=== PATIENT | male | born 1940 | race Hispanic/Latino ===

== ENCOUNTER 2021-12-05 21:04 | Inpatient (IN) | payer MEDICARE ==
[~2021-12-05] VITALS: Ht 162.6 cm; Wt 68.7 kg
[2021-12-05 21:27] LABS: HEMATOCRIT 23.4 % (38.2-49.6); HEMOGLOBIN 7.3 g/dL (14.0-18.0); LYMPHOCYTES # (AUTO) 0.8 (1.0-3.2); MEAN CORPUSCULAR HEMOGLOBIN 40.1 pg (28-32); MEAN CORPUSCULAR HGB CONC 31.2 g/dL (31-35); MEAN CORPUSCULAR VOLUME 128.6 fL (81-99); MONOCYTES # (AUTO) 0.2 (0.2-0.8); MONOCYTES % 7.4 % (4.4-11.3); NEUTROPHILS # (AUTO) 2.3 (2.1-6.9); PLATELET COUNT 51 x10e3/uL (140-360); RED BLOOD COUNT 1.82 x10e6/uL (4.3-5.7); RED CELL DISTRIBUTION WIDTH 14.6 % (11.7-14.4)
[2021-12-05] MEDS ORDERED: AMIODARONE HCL 150 MG/100 ML BAG IV ONE (21:30)
[2021-12-05] MEDS ORDERED: AMIODARONE 900MG 500 ML IV ONE (21:30)
[2021-12-05 21:47] LABS: ALBUMIN 2.6 g/dL (3.5-5.0); ALBUMIN/GLOBULIN RATIO 0.9 (0.8-2.0); ANION GAP 12.7 mmol/L (8-16); CALCIUM 8.4 mg/dL (8.4-10.2); CREATININE, SERUM 1.06 mg/dL (0.72-1.25); POTASSIUM 3.7 mmol/L (3.5-5.1)
[2021-12-05] MEDS ORDERED: SODIUM CHLORIDE 0.9% 1000ML 1,000 ML ONE (21:58)
[2021-12-05] MEDS ORDERED: SODIUM CHLORIDE 0.9% 1000ML 1,000 ML IV ONE (22:00)
[2021-12-05] MEDS ORDERED: ENOXAPARIN INJ 80 MG/0.8 ML SYR SC SCH (22:30)
[2021-12-05] MEDS ORDERED: SODIUM CHLORIDE FLUSH 10 ML SYR INJ PRN (22:30)
[2021-12-05] MEDS ORDERED: DIGOXIN INJ 0.25 MG/ML 2 ML AMP IV ONE (22:30)
[2021-12-05] MEDS: CEFTRIAXONE 2 GM in SODIUM CHLORIDE 0.9% 100 ML IV SCH (22:49)
[2021-12-05] MEDS ORDERED: CEFUROXIME250 MG PO (22:50)
[2021-12-05] MEDS ORDERED: LOSARTAN POTAS100 MG PO (22:50)
[2021-12-05] MEDS ORDERED: ENOXAPARIN 30 MG/0.3 ML SYR SC ONE (22:50)
[2021-12-05] MEDS ORDERED: HYDROCHLOROTHIA25 MG PO (22:50)
[2021-12-05] MEDS ORDERED: AMLODIPINE BESYL5 MG PO (22:50)
[2021-12-05] MEDS ORDERED: FOLIC ACID0.4 MG PO (22:50)
[2021-12-06] VITALS (7 sets, daily range): BP systolic 105–133; BP diastolic 71–78
[2021-12-06] MEDS ORDERED: POTASSIUM CHLORIDE 20 MEQ TAB CR PO STA
[2021-12-06] MEDS ORDERED: AMIODARONE 900MG 500 ML IV SCH
[2021-12-06] MEDS ORDERED: MAGNESIUM/ALUMINUM/SIMETHICONE 30 ML UDC PO PRN
[2021-12-06] MEDS ORDERED: ONDANSETRON HCL INJ 2MG/ML 2ML 2 MG/ML VIAL IV PRN
[2021-12-06] MEDS ORDERED: DOCUSATE SODIUM 100 MG CAP PO PRN
[2021-12-06] MEDS ORDERED: THIAMINE HCL INJ 100 MG/ML 2ML VIAL IV ONE
[2021-12-06] MEDS ORDERED: DEXAMETHASONE SOD PHOS INJ 4 MG/ML SDV IV ONE (00:15)
[2021-12-06 05:48] LABS: HEMATOCRIT 22.1 % (38.2-49.6); HEMOGLOBIN 7.3 g/dL (14.0-18.0); LYMPHOCYTES # (AUTO) 0.5 (1.0-3.2); LYMPHOCYTES % 18.1 % (18.0-39.1); MEAN CORPUSCULAR VOLUME 124.2 fL (81-99); MONOCYTES # (AUTO) 0.2 (0.2-0.8); MONOCYTES % 5.5 % (4.4-11.3); NEUTROPHILS # (AUTO) 2.1 (2.1-6.9); NEUTROPHILS % 75.7 % (38.7-80.0); RED BLOOD COUNT 1.78 x10e6/uL (4.3-5.7); RED CELL DISTRIBUTION WIDTH 14.5 % (11.7-14.4)
[2021-12-06 05:54] LABS: PLATELET COUNT 44 x10e3/uL (140-360)
[2021-12-06 06:14] LABS: ALBUMIN 2.3 g/dL (3.5-5.0); ALBUMIN/GLOBULIN RATIO 0.9 (0.8-2.0); ANION GAP 8.7 mmol/L (8-16); CALCIUM 7.9 mg/dL (8.4-10.2); POTASSIUM 3.7 mmol/L (3.5-5.1)
[2021-12-06 06:38] LABS: CREATININE, SERUM 0.8 mg/dL (0.72-1.25)
[2021-12-06 06:53] LABS: IRON 34 ug/dL (65-175); TRANSFERRIN < 70 mg/dL (174-364)
[2021-12-06 06:55] LABS: MAGNESIUM 1.8 MG/DL (1.3-2.1); PHOSPHORUS 2.3 MG/DL (2.3-4.7)
[2021-12-06 07:00] LABS: CREATINE KINASE MB 1.5 ng/mL (0-5.0)
[2021-12-06 07:03] LABS: CHOL/HDL RATIO 2.4 (3.9-4.7)
[2021-12-06 07:36] LABS: FERRITIN 1502.51 ng/mL (21.81-274.66); THYROID STIMULATING HORMONE 0.26 uIU/mL (0.350-4.940)
[2021-12-06] MEDS ORDERED: ENOXAPARIN INJ 80 MG/0.8 ML SYR SC SCH ×2 (09:00→17:00)
[2021-12-06 10:24] LABS: LYMPHOCYTES % (MANUAL) 13 % (19-48); MONOCYTES % (MANUAL) 4 % (3.4-9.0); NEUTROPHILS % (MANUAL) 83 % (40-74); PLATELET ESTIMATE MODERATELY DECREASED; PLATELET MORPHOLOGY COMMENT NORMAL; RBC MORPHOLOGY COMMENT NORMAL
[2021-12-06] MEDS: DEXAMETHASONE SOD PHOS 10 MG/1 ML VIAL IV SCH (10:51)
[2021-12-06] MEDS: MULTIVITAMINS/MINERALS TAB PO SCH (10:51)
[2021-12-06] MEDS: ZINC SULFATE 50 MG CAP PO SCH (10:51)
[2021-12-06] MEDS: ASCORBIC ACID 500 MG TAB PO SCH ×2 (10:52→17:30)
[2021-12-06] MEDS ORDERED: FUROSEMIDE INJ 10 MG/ML 4 ML VIAL IV ONE (11:45)
[2021-12-06 14:43] LABS: CREATINE KINASE MB 1.6 ng/mL (0-5.0)
[2021-12-06] MEDS: METOPROLOL TARTRATE 25 MG TAB PO SCH ×2 (15:07→22:00)
[2021-12-06] MEDS ORDERED: DIGOXIN INJ 0.25 MG/ML 2 ML AMP IV ONE (16:45)
[2021-12-06] MEDS ORDERED: DEXAMETHASONE SOD PHOS 10 MG/1 ML VIAL IV ONE (19:00)
[2021-12-06] MEDS: CEFTRIAXONE 2 GM in SODIUM CHLORIDE 0.9% 100 ML IV SCH (21:00)
[2021-12-06] MEDS ORDERED: SODIUM CHLORIDE 0.9% 250ML 250 ML ONE (22:10)
[2021-12-07] VITALS (10 sets, daily range): BP systolic 104–123; BP diastolic 60–79
[2021-12-07 05:37] LABS: LYMPHOCYTES # (AUTO) 0.6 (1.0-3.2); LYMPHOCYTES % 16.6 % (18.0-39.1); MEAN CORPUSCULAR HEMOGLOBIN 40.8 pg (28-32); MEAN CORPUSCULAR HGB CONC 32.7 g/dL (31-35); MONOCYTES # (AUTO) 0.1 (0.2-0.8); MONOCYTES % 3.6 % (4.4-11.3); NEUTROPHILS # (AUTO) 2.9 (2.1-6.9); NEUTROPHILS % 79.5 % (38.7-80.0); RED BLOOD COUNT 1.96 x10e6/uL (4.3-5.7); RED CELL DISTRIBUTION WIDTH 14.2 % (11.7-14.4)
[2021-12-07] MEDS: METOPROLOL TARTRATE 25 MG TAB PO SCH ×3 (06:00→22:48)
[2021-12-07 06:22] LABS: ALBUMIN 2.4 g/dL (3.5-5.0); ALBUMIN/GLOBULIN RATIO 0.8 (0.8-2.0); ANION GAP 10.7 mmol/L (8-16); CALCIUM 8.3 mg/dL (8.4-10.2); CREATININE, SERUM 0.77 mg/dL (0.72-1.25); POTASSIUM 3.7 mmol/L (3.5-5.1)
[2021-12-07 06:40] LABS: HEMATOCRIT 24.3 % (38.2-49.6); HEMOGLOBIN 8.1 g/dL (14.0-18.0)
[2021-12-07 06:42] LABS: PLATELET COUNT 44 x10e3/uL (140-360)
[2021-12-07 07:53] LABS: CREATINE KINASE MB 2.1 ng/mL (0-5.0)
[2021-12-07] MEDS ORDERED: REMDESIVIR 100MG 200 MG in SODIUM CHLORIDE 0.9% 100 ML IV ONE (09:00)
[2021-12-07] MEDS: ASCORBIC ACID 500 MG TAB PO SCH ×2 (09:50→17:57)
[2021-12-07] MEDS: ZINC SULFATE 50 MG CAP PO SCH (09:50)
[2021-12-07] MEDS: MULTIVITAMINS/MINERALS TAB PO SCH (09:50)
[2021-12-07] MEDS: ENOXAPARIN SOD INJ 40 MG/0.4 ML SYR SC SCH (09:50)
[2021-12-07] MEDS: METOPROLOL TARTRATE INJ 1 MG/ML VIAL IV PRN (09:55)
[2021-12-07 10:55] LABS: LYMPHOCYTES % (MANUAL) 10 % (19-48); MONOCYTES % (MANUAL) 1 % (3.4-9.0); NEUTROPHILS % (MANUAL) 89 % (40-74)
[2021-12-07 10:57] LABS: PLATELET ESTIMATE MODERATELY DECREASED; PLATELET MORPHOLOGY COMMENT NORMAL; RBC MORPHOLOGY COMMENT NORMAL
[2021-12-07] MEDS: DEXAMETHASONE SOD PHOS 10 MG/1 ML VIAL IV SCH (11:31)
[2021-12-07] MEDS: AMIODARONE HCL 200 MG TAB PO SCH ×2 (13:14→21:18)
[2021-12-07] MEDS ORDERED: DEXAMETHASONE SOD PHOS 10 MG/1 ML VIAL IV ONE (21:00)
[2021-12-07] MEDS: CEFTRIAXONE 2 GM in SODIUM CHLORIDE 0.9% 100 ML IV SCH (21:18)
[2021-12-08 00:27] VITALS: BP 113/66
[2021-12-08 05:06] VITALS: BP 110/65
[2021-12-08] MEDS: METOPROLOL TARTRATE 25 MG TAB PO SCH ×3 (06:00→22:00)
[2021-12-08 07:46] VITALS: BP 115/69
[2021-12-08 09:17] LABS: HEMOGLOBIN 7.7 g/dL (14.0-18.0); LYMPHOCYTES # (AUTO) 0.5 (1.0-3.2); LYMPHOCYTES % 9.9 % (18.0-39.1); MEAN CORPUSCULAR HEMOGLOBIN 40.3 pg (28-32); MEAN CORPUSCULAR HGB CONC 32.1 g/dL (31-35); MEAN CORPUSCULAR VOLUME 125.7 fL (81-99); MONOCYTES # (AUTO) 0.2 (0.2-0.8); MONOCYTES % 3.5 % (4.4-11.3); NEUTROPHILS % 86.2 % (38.7-80.0); RED BLOOD COUNT 1.91 x10e6/uL (4.3-5.7); RED CELL DISTRIBUTION WIDTH 14.5 % (11.7-14.4)
[2021-12-08 09:20] LABS: PLATELET COUNT 43 x10e3/uL (140-360)
[2021-12-08 09:35] LABS: ALBUMIN 2.3 g/dL (3.5-5.0); ALBUMIN/GLOBULIN RATIO 0.9 (0.8-2.0); ANION GAP 6.8 mmol/L (8-16); CREATININE, SERUM 0.83 mg/dL (0.72-1.25); POTASSIUM 3.8 mmol/L (3.5-5.1)
[2021-12-08] MEDS: ENOXAPARIN SOD INJ 40 MG/0.4 ML SYR SC SCH (09:35)
[2021-12-08] MEDS: AMIODARONE HCL 200 MG TAB PO SCH ×3 (09:35→21:00)
[2021-12-08] MEDS: ZINC SULFATE 50 MG CAP PO SCH (09:35)
[2021-12-08] MEDS: MULTIVITAMINS/MINERALS TAB PO SCH (09:35)
[2021-12-08] MEDS: ASCORBIC ACID 500 MG TAB PO SCH ×2 (09:35→18:18)
[2021-12-08] MEDS: DEXAMETHASONE SOD PHOS 10 MG/1 ML VIAL IV SCH (09:35)
[2021-12-08 11:55] LABS: OVALOCYTES FEW; PLATELET ESTIMATE MARKEDLY DECREASED; PLATELET MORPHOLOGY COMMENT NORMAL; RBC MORPHOLOGY COMMENT ABNORMAL
[2021-12-08 12:15] VITALS: BP 119/72
[2021-12-08] MEDS: REMDESIVIR 100MG 100 MG in SODIUM CHLORIDE 0.9% 100 ML IV SCH (14:52)
[2021-12-08 16:10] VITALS: BP 129/83
[2021-12-08 20:00] VITALS: BP 123/72
[2021-12-08] MEDS: CEFTRIAXONE 2 GM in SODIUM CHLORIDE 0.9% 100 ML IV SCH (21:00)
[2021-12-09] VITALS (18 sets, daily range): BP systolic 95–133; BP diastolic 49–87
[2021-12-09 04:25] LABS: ABG HCO3 18 mmol/L (22-26); ABG PCO2 30 mmHg (35-45); ABG PH 7.38 (7.35-7.45); ABG PO2 59 mmHg (80-105); ABG TCO2 18
[2021-12-09] MEDS ORDERED: SODIUM CHLORIDE 0.9% 1000ML 1,000 ML IV ONE ×2 (04:30)
[2021-12-09 05:10] LABS: BASOPHILS % 0.1 % (0.0-1.0); HEMATOCRIT 25.1 % (38.2-49.6); HEMOGLOBIN 7.9 g/dL (14.0-18.0); LYMPHOCYTES # (AUTO) 1.1 (1.0-3.2); LYMPHOCYTES % 15.5 % (18.0-39.1); MEAN CORPUSCULAR HEMOGLOBIN 40.5 pg (28-32); MEAN CORPUSCULAR HGB CONC 31.5 g/dL (31-35); MEAN CORPUSCULAR VOLUME 128.7 fL (81-99); MONOCYTES # (AUTO) 0.3 (0.2-0.8); MONOCYTES % 4.7 % (4.4-11.3); NEUTROPHILS # (AUTO) 5.6 (2.1-6.9); NEUTROPHILS % 78.9 % (38.7-80.0); PLATELET COUNT 50 x10e3/uL (140-360); RED BLOOD COUNT 1.95 x10e6/uL (4.3-5.7); RED CELL DISTRIBUTION WIDTH 14.3 % (11.7-14.4)
[2021-12-09 05:30] LABS: ALBUMIN 2.3 g/dL (3.5-5.0); ALBUMIN/GLOBULIN RATIO 0.9 (0.8-2.0); ANION GAP 11.3 mmol/L (8-16); CREATININE, SERUM 0.81 mg/dL (0.72-1.25); POTASSIUM 4.3 mmol/L (3.5-5.1)
[2021-12-09] MEDS: METOPROLOL TARTRATE 25 MG TAB PO SCH ×3 (06:34→22:05)
[2021-12-09 07:35] LABS: INR 1.36; PROTHROMBIN TIME 17.8 seconds (11.9-14.5)
[2021-12-09 07:36] LABS: PARTIAL THROMBOPLASTIN TIME 33.2 seconds (23.8-35.5)
[2021-12-09] MEDS: ASCORBIC ACID 500 MG TAB PO SCH ×2 (08:26→17:32)
[2021-12-09] MEDS: ZINC SULFATE 50 MG CAP PO SCH (08:26)
[2021-12-09] MEDS: DEXAMETHASONE SOD PHOS 10 MG/1 ML VIAL IV SCH (08:26)
[2021-12-09] MEDS: AMIODARONE HCL 200 MG TAB PO SCH (08:27)
[2021-12-09] MEDS: ENOXAPARIN SOD INJ 40 MG/0.4 ML SYR SC SCH (08:27)
[2021-12-09] MEDS: MULTIVITAMINS/MINERALS TAB PO SCH (08:27)
[2021-12-09] MEDS ORDERED: SODIUM CHLORIDE 0.9% INJ 250 ML BAG ONE (12:48)
[2021-12-09] MEDS ORDERED: AMIODARONE HCL INJ 150MG/3ML ONE (12:48)
[2021-12-09] MEDS ORDERED: SODIUM BICARBONATE 8.4% INJ 50 ML SYR ONE (12:48)
[2021-12-09] MEDS ORDERED: EPINEPHRINE HCL SYRINGE ONE (12:48)
[2021-12-09] MEDS ORDERED: MAGNESIUM SULF 1GRAM/DEXTROSE PREMIX BAG 100ML IV ONE (12:48)
[2021-12-09] MEDS ORDERED: SODIUM CHLORIDE FLUSH 10 ML SYR ONE (12:48)
[2021-12-09 13:18] LABS: ABG HCO3 21 mmol/L (22-26); ABG PCO2 30 mmHg (35-45); ABG PH 7.46 (7.35-7.45); ABG PO2 150 mmHg (80-105); ABG TCO2 22
[2021-12-09] MEDS ORDERED: KETOROLAC TROMETHAMINE 30 MG/ML VIAL IV ONE (13:45)
[2021-12-09] MEDS: REMDESIVIR 100MG 100 MG in SODIUM CHLORIDE 0.9% 100 ML IV SCH (15:25)
[2021-12-09] MEDS: DEXMEDETOMIDINE 400MCG/NS100ML 100 ML IV PRN (17:33)
[2021-12-09] MEDS: CEFTRIAXONE 2 GM in SODIUM CHLORIDE 0.9% 100 ML IV SCH (21:00)
[2021-12-09] MEDS: HYDROCODONE/APAP 5MG-325MG TAB PO PRN (21:30)
[2021-12-10] VITALS (16 sets, daily range): BP systolic 93–125; BP diastolic 51–88
[2021-12-10 05:07] LABS: LYMPHOCYTES # (AUTO) 0.5 (1.0-3.2); LYMPHOCYTES % 9.4 % (18.0-39.1); MEAN CORPUSCULAR HEMOGLOBIN 40.1 pg (28-32); MEAN CORPUSCULAR VOLUME 125.3 fL (81-99); MONOCYTES # (AUTO) 0.3 (0.2-0.8); MONOCYTES % 6.1 % (4.4-11.3); NEUTROPHILS # (AUTO) 4.4 (2.1-6.9); NEUTROPHILS % 84.1 % (38.7-80.0); RED BLOOD COUNT 1.62 x10e6/uL (4.3-5.7); RED CELL DISTRIBUTION WIDTH 14.2 % (11.7-14.4)
[2021-12-10 05:24] LABS: ALBUMIN 2.4 g/dL (3.5-5.0); ALBUMIN/GLOBULIN RATIO 1.1 (0.8-2.0); CREATININE, SERUM 0.92 mg/dL (0.72-1.25); POTASSIUM 4.2 mmol/L (3.5-5.1)
[2021-12-10 05:41] LABS: ANION GAP 7.2 mmol/L (8-16); CALCIUM 7.8 mg/dL (8.4-10.2)
[2021-12-10 05:44] LABS: PLATELET COUNT 35 x10e3/uL (140-360)
[2021-12-10 05:45] LABS: HEMATOCRIT 20.3 % (38.2-49.6); HEMOGLOBIN 6.5 g/dL (14.0-18.0)
[2021-12-10] MEDS: METOPROLOL TARTRATE 25 MG TAB PO SCH ×3 (06:01→22:15)
[2021-12-10] MEDS ORDERED: SODIUM CHLORIDE 0.9% 250ML 250 ML IV ONE (07:00)
[2021-12-10 08:45] LABS: HYPOCHROMASIA SLIGHT; LYMPHOCYTES % (MANUAL) 7 % (19-48); MONOCYTES % (MANUAL) 5 % (3.4-9.0); NEUTROPHILS % (MANUAL) 87 % (40-74); PLATELET ESTIMATE MARKEDLY DECREASED; PLATELET MORPHOLOGY COMMENT NORMAL; RBC MORPHOLOGY COMMENT ABNORMAL
[2021-12-10] MEDS: ENOXAPARIN SOD INJ 40 MG/0.4 ML SYR SC SCH (09:42)
[2021-12-10] MEDS: AMIODARONE HCL 200 MG TAB PO SCH (09:42)
[2021-12-10] MEDS: DEXAMETHASONE SOD PHOS 10 MG/1 ML VIAL IV SCH (09:42)
[2021-12-10] MEDS: ASCORBIC ACID 500 MG TAB PO SCH ×2 (09:42→17:13)
[2021-12-10] MEDS: ZINC SULFATE 50 MG CAP PO SCH (09:42)
[2021-12-10] MEDS: MULTIVITAMINS/MINERALS TAB PO SCH (09:42)
[2021-12-10] MEDS ORDERED: ETOMIDATE 2 MG/ML 10 ML INJ IV ONE (12:58)
[2021-12-10] MEDS ORDERED: SUCCINYLCHOLINE CHLORIDE 20 MG/ML 10ML VIAL ONE (12:58)
[2021-12-10] MEDS ORDERED: VECURONIUM BROMIDE FOR INJ 20 MG VIAL ONE (12:58)
[2021-12-10] MEDS ORDERED: WATER STERILE 10 ML VIAL ONE (12:58)
[2021-12-10] MEDS: REMDESIVIR 100MG 100 MG in SODIUM CHLORIDE 0.9% 100 ML IV SCH (14:43)
[2021-12-10] MEDS: HYDROCODONE/APAP 5MG-325MG TAB PO PRN ×2 (14:45→21:00)
[2021-12-10 17:12] LABS: HEMATOCRIT 28.1 % (38.2-49.6); HEMOGLOBIN 9.1 g/dL (14.0-18.0)
[2021-12-10] MEDS: DEXMEDETOMIDINE 400MCG/NS100ML 100 ML IV PRN (20:17)
[2021-12-10] MEDS: CEFTRIAXONE 2 GM in SODIUM CHLORIDE 0.9% 100 ML IV SCH (21:30)
[2021-12-11] VITALS (15 sets, daily range): BP systolic 105–139; BP diastolic 58–82
[2021-12-11] MEDS: HYDROCODONE/APAP 5MG-325MG TAB PO PRN (01:50)
[2021-12-11] MEDS: KETOROLAC TROMETHAMINE 30 MG/ML VIAL IV PRN (04:33)
[2021-12-11] MEDS: METOPROLOL TARTRATE 25 MG TAB PO SCH ×3 (05:03→22:00)
[2021-12-11 05:50] LABS: BASOPHILS % 0.1 % (0.0-1.0); HEMATOCRIT 28.1 % (38.2-49.6); HEMOGLOBIN 9.3 g/dL (14.0-18.0); LYMPHOCYTES # (AUTO) 0.5 (1.0-3.2); LYMPHOCYTES % 6.4 % (18.0-39.1); MEAN CORPUSCULAR HEMOGLOBIN 37.1 pg (28-32); MEAN CORPUSCULAR HGB CONC 33.1 g/dL (31-35); MONOCYTES # (AUTO) 0.4 (0.2-0.8); MONOCYTES % 5.4 % (4.4-11.3); NEUTROPHILS # (AUTO) 6.5 (2.1-6.9); NEUTROPHILS % 87.7 % (38.7-80.0); RED BLOOD COUNT 2.51 x10e6/uL (4.3-5.7)
[2021-12-11 05:53] LABS: PLATELET COUNT 40 x10e3/uL (140-360)
[2021-12-11 06:03] LABS: ALBUMIN 2.5 g/dL (3.5-5.0); ANION GAP 10.1 mmol/L (8-16); CALCIUM 7.8 mg/dL (8.4-10.2); CREATININE, SERUM 0.73 mg/dL (0.72-1.25); POTASSIUM 4.1 mmol/L (3.5-5.1)
[2021-12-11] MEDS: ENOXAPARIN SOD INJ 40 MG/0.4 ML SYR SC SCH (09:30)
[2021-12-11] MEDS: AMIODARONE HCL 200 MG TAB PO SCH (09:30)
[2021-12-11] MEDS: MULTIVITAMINS/MINERALS TAB PO SCH (09:30)
[2021-12-11] MEDS: ZINC SULFATE 50 MG CAP PO SCH (09:30)
[2021-12-11] MEDS: ASCORBIC ACID 500 MG TAB PO SCH ×2 (09:30→17:30)
[2021-12-11] MEDS: DEXAMETHASONE SOD PHOS 10 MG/1 ML VIAL IV SCH (09:30)
[2021-12-11] MEDS: FUROSEMIDE 20 MG TAB PO SCH (10:09)
[2021-12-11] MEDS: REMDESIVIR 100MG 100 MG in SODIUM CHLORIDE 0.9% 100 ML IV SCH (14:48)
[2021-12-11] MEDS: CEFTRIAXONE 2 GM in SODIUM CHLORIDE 0.9% 100 ML IV SCH (22:20)
[2021-12-12] VITALS (11 sets, daily range): BP systolic 90–137; BP diastolic 51–87
[2021-12-12] MEDS: DEXMEDETOMIDINE 400MCG/NS100ML 100 ML IV PRN (03:03)
[2021-12-12] MEDS: HYDROCODONE/APAP 5MG-325MG TAB PO PRN (04:00)
[2021-12-12] MEDS: METOPROLOL TARTRATE 25 MG TAB PO SCH ×3 (06:00→21:49)
[2021-12-12] MEDS: MULTIVITAMINS/MINERALS TAB PO SCH (09:01)
[2021-12-12] MEDS: AMIODARONE HCL 200 MG TAB PO SCH (09:01)
[2021-12-12] MEDS: ZINC SULFATE 50 MG CAP PO SCH (09:01)
[2021-12-12] MEDS: FUROSEMIDE 20 MG TAB PO SCH (09:01)
[2021-12-12] MEDS: ENOXAPARIN SOD INJ 40 MG/0.4 ML SYR SC SCH (09:01)
[2021-12-12] MEDS: ASCORBIC ACID 500 MG TAB PO SCH ×2 (09:01→17:00)
[2021-12-12] MEDS: KETOROLAC TROMETHAMINE 30 MG/ML VIAL IV PRN (09:02)
[2021-12-12 09:22] LABS: BASOPHILS % 0.1 % (0.0-1.0); EOSINOPHILS % 0.3 % (0.0-6.0); HEMATOCRIT 28.5 % (38.2-49.6); LYMPHOCYTES # (AUTO) 0.6 (1.0-3.2); LYMPHOCYTES % 7.3 % (18.0-39.1); MEAN CORPUSCULAR HEMOGLOBIN 36.9 pg (28-32); MEAN CORPUSCULAR HGB CONC 31.6 g/dL (31-35); MEAN CORPUSCULAR VOLUME 116.8 fL (81-99); MONOCYTES # (AUTO) 0.3 (0.2-0.8); MONOCYTES % 4.2 % (4.4-11.3); NEUTROPHILS # (AUTO) 6.6 (2.1-6.9); NEUTROPHILS % 87.4 % (38.7-80.0); RED BLOOD COUNT 2.44 x10e6/uL (4.3-5.7); RED CELL DISTRIBUTION WIDTH 21.7 % (11.7-14.4)
[2021-12-12 09:23] LABS: PLATELET COUNT 40 x10e3/uL (140-360)
[2021-12-12 09:35] LABS: ALBUMIN 2.3 g/dL (3.5-5.0); CALCIUM 7.6 mg/dL (8.4-10.2); CREATININE, SERUM 0.7 mg/dL (0.72-1.25)
[2021-12-12] MEDS ORDERED: KETOROLAC TROMETHAMINE 30 MG/ML VIAL IV ONE (18:45)
[2021-12-12] MEDS ORDERED: KETOROLAC TROMETHAMINE 30 MG/ML VIAL ONE (18:54)
[2021-12-12] MEDS ORDERED: Morphine 2mg Syringe 2 MG/ML SYR IV ONE (19:00)
[2021-12-13] VITALS (25 sets, daily range): BP systolic 84–136; BP diastolic 27–80
[2021-12-13] MEDS: DEXMEDETOMIDINE 400MCG/NS100ML 100 ML IV PRN (00:15)
[2021-12-13] MEDS: HYDROCODONE/APAP 5MG-325MG TAB PO PRN (01:30)
[2021-12-13] MEDS ORDERED: VECURONIUM BROMIDE FOR INJ 20 MG VIAL IV STA (03:57)
[2021-12-13] MEDS ORDERED: MIDAZOLAM HCL 5MG/ML 10ML VIAL 100 ML IV ONE (04:09)
[2021-12-13] MEDS ORDERED: ROCURONIUM 1250MG/NS 250 250 ML ONE (04:10)
[2021-12-13] MEDS ORDERED: FENTANYL 2000MCG/NS 250 250 ML ONE (04:10)
[2021-12-13] MEDS ORDERED: SODIUM CHLORIDE 0.9% 1000ML 1,000 ML ONE ×2 (04:31→08:33)
[2021-12-13] MEDS ORDERED: SODIUM CHLORIDE 0.9% 1000ML 1,000 ML IV ONE (04:45)
[2021-12-13] MEDS ORDERED: NOREPINEPHRINE 8 MG/D5W 250 ML 250 ML IV PRN (04:45)
[2021-12-13] MEDS: FENTANYL 2000MCG/NS 250 250 ML IV PRN ×2 (04:48→14:01)
[2021-12-13] MEDS: MIDAZOLAM HCL 5MG/ML 10ML VIAL 100 ML IV PRN ×2 (04:48→12:34)
[2021-12-13] MEDS: ROCURONIUM 1250MG/NS 250 250 ML IV PRN ×2 (04:49→12:35)
[2021-12-13] MEDS: METOPROLOL TARTRATE 25 MG TAB PO SCH ×3 (06:00→22:00)
[2021-12-13 06:56] LABS: ABG PCO2 44 mmHg (35-45); ABG PH 7.32 (7.35-7.45); ABG PO2 285 mmHg (80-105)
[2021-12-13 06:57] LABS: ABG HCO3 22 mmol/L (22-26); ABG TCO2 24
[2021-12-13 07:16] LABS: BASOPHILS % 0.1 % (0.0-1.0); EOSINOPHILS % 0.1 % (0.0-6.0); HEMATOCRIT 25.8 % (38.2-49.6); HEMOGLOBIN 8.1 g/dL (14.0-18.0); LYMPHOCYTES # (AUTO) 0.6 (1.0-3.2); LYMPHOCYTES % 6.5 % (18.0-39.1); MEAN CORPUSCULAR HEMOGLOBIN 36.7 pg (28-32); MEAN CORPUSCULAR HGB CONC 31.4 g/dL (31-35); MEAN CORPUSCULAR VOLUME 116.7 fL (81-99); MONOCYTES # (AUTO) 0.3 (0.2-0.8); MONOCYTES % 3.7 % (4.4-11.3); NEUTROPHILS % 89.2 % (38.7-80.0); RED BLOOD COUNT 2.21 x10e6/uL (4.3-5.7); RED CELL DISTRIBUTION WIDTH 20.8 % (11.7-14.4)
[2021-12-13 07:26] LABS: PLATELET COUNT 39 x10e3/uL (140-360)
[2021-12-13 07:38] LABS: ALBUMIN/GLOBULIN RATIO 0.9 (0.8-2.0); ANION GAP 7.1 mmol/L (8-16); CALCIUM 7.6 mg/dL (8.4-10.2); CREATININE, SERUM 0.74 mg/dL (0.72-1.25); POTASSIUM 4.1 mmol/L (3.5-5.1)
[2021-12-13] MEDS: FUROSEMIDE 20 MG TAB PO SCH (08:01)
[2021-12-13] MEDS: AMIODARONE HCL 200 MG TAB PO SCH (08:01)
[2021-12-13] MEDS: ZINC SULFATE 50 MG CAP PO SCH (08:01)
[2021-12-13] MEDS: ASCORBIC ACID 500 MG TAB PO SCH ×2 (08:01→16:41)
[2021-12-13] MEDS: ENOXAPARIN SOD INJ 40 MG/0.4 ML SYR SC SCH (08:01)
[2021-12-13] MEDS: MULTIVITAMINS/MINERALS TAB PO SCH (08:01)
[2021-12-13] MEDS ORDERED: LACTATED RINGER'S 500 ML INJ ONE (09:00)
[2021-12-13 11:27] LABS: ABG PCO2 26 mmHg (35-45); ABG PH 7.52 (7.35-7.45); ABG PO2 222 mmHg (80-105)
[2021-12-13 11:28] LABS: ABG HCO3 21 mmol/L (22-26); ABG TCO2 22
[2021-12-13 16:40] LABS: ABG HCO3 23 mmol/L (22-26); ABG PCO2 44 mmHg (35-45); ABG PH 7.33 (7.35-7.45); ABG PO2 93 mmHg (80-105)
[2021-12-13 16:41] LABS: ABG TCO2 24
[2021-12-14] VITALS (25 sets, daily range): BP systolic 87–142; BP diastolic 35–64
[2021-12-14] MEDS: FENTANYL 2000MCG/NS 250 250 ML IV PRN ×2 (00:41→10:49)
[2021-12-14] MEDS: MIDAZOLAM HCL 5MG/ML 10ML VIAL 100 ML IV PRN (01:13)
[2021-12-14] MEDS: METOPROLOL TARTRATE 25 MG TAB PO SCH ×3 (06:00→22:00)
[2021-12-14 06:27] LABS: BASOPHILS % 0.1 % (0.0-1.0); EOSINOPHILS # (AUTO) 0.2 (0.0-0.4); EOSINOPHILS % 2.3 % (0.0-6.0); HEMATOCRIT 25.2 % (38.2-49.6); LYMPHOCYTES # (AUTO) 0.6 (1.0-3.2); LYMPHOCYTES % 8.6 % (18.0-39.1); MEAN CORPUSCULAR HEMOGLOBIN 37.2 pg (28-32); MEAN CORPUSCULAR HGB CONC 31.7 g/dL (31-35); MEAN CORPUSCULAR VOLUME 117.2 fL (81-99); MONOCYTES # (AUTO) 0.2 (0.2-0.8); MONOCYTES % 3.1 % (4.4-11.3); NEUTROPHILS # (AUTO) 6.4 (2.1-6.9); NEUTROPHILS % 85.2 % (38.7-80.0); RED BLOOD COUNT 2.15 x10e6/uL (4.3-5.7); RED CELL DISTRIBUTION WIDTH 20.4 % (11.7-14.4)
[2021-12-14 06:36] LABS: PLATELET COUNT 40 x10e3/uL (140-360)
[2021-12-14 06:44] LABS: ALBUMIN 1.7 g/dL (3.5-5.0); ALBUMIN/GLOBULIN RATIO 0.7 (0.8-2.0); CALCIUM 7.6 mg/dL (8.4-10.2); CREATININE, SERUM 0.82 mg/dL (0.72-1.25)
[2021-12-14] MEDS: ZINC SULFATE 50 MG CAP PO SCH (08:21)
[2021-12-14] MEDS: AMIODARONE HCL 200 MG TAB PO SCH (08:21)
[2021-12-14] MEDS: ASCORBIC ACID 500 MG TAB PO SCH ×2 (08:21→16:15)
[2021-12-14] MEDS: MULTIVITAMINS/MINERALS TAB PO SCH (08:21)
[2021-12-14] MEDS: ENOXAPARIN SOD INJ 40 MG/0.4 ML SYR SC SCH (08:21)
[2021-12-14 09:02] LABS: ABG HCO3 24 mmol/L (22-26); ABG PCO2 44 mmHg (35-45); ABG PH 7.35 (7.35-7.45); ABG PO2 105 mmHg (80-105); ABG TCO2 25
[2021-12-14] MEDS ORDERED: FUROSEMIDE INJ 10 MG/ML 4 ML VIAL IV NR (09:30)
[2021-12-14 09:38] LABS: ANISOCYTOSIS MODERATE; LYMPHOCYTES % (MANUAL) 3 % (19-48); MONOCYTES % (MANUAL) 4 % (3.4-9.0); NEUTROPHILS % (MANUAL) 93 % (40-74); PLATELET ESTIMATE MARKEDLY DECREASED; PLATELET MORPHOLOGY COMMENT NORMAL; RBC MORPHOLOGY COMMENT ABNORMAL
[2021-12-14] MEDS ORDERED: PROPOFOL IV EMULSION 10MG/ML 100 ML IV SCH (09:45)
[2021-12-14] MEDS: SENNA-S TABLET PO SCH (09:57)
[2021-12-14] MEDS: ALBUMIN 25% 25GM 100ML 0.25 GM/ML BTL IV SCH ×2 (09:57→13:02)
[2021-12-14] MEDS: METOCLOPRAMIDE HCL 10 MG/2ML VIAL IV SCH ×2 (13:02→23:42)
[2021-12-14] MEDS ORDERED: FUROSEMIDE INJ 10 MG/ML 4 ML VIAL IV ONE (16:30)
[2021-12-15] VITALS (29 sets, daily range): BP systolic 96–167; BP diastolic 40–99
[2021-12-15 05:38] LABS: BASOPHILS % 0.2 % (0.0-1.0); EOSINOPHILS # (AUTO) 0.1 (0.0-0.4); EOSINOPHILS % 1.7 % (0.0-6.0); HEMATOCRIT 22.6 % (38.2-49.6); HEMOGLOBIN 7.4 g/dL (14.0-18.0); LYMPHOCYTES # (AUTO) 0.4 (1.0-3.2); MEAN CORPUSCULAR HEMOGLOBIN 37.6 pg (28-32); MEAN CORPUSCULAR HGB CONC 32.7 g/dL (31-35); MEAN CORPUSCULAR VOLUME 114.7 fL (81-99); MONOCYTES # (AUTO) 0.2 (0.2-0.8); MONOCYTES % 3.5 % (4.4-11.3); NEUTROPHILS # (AUTO) 4.6 (2.1-6.9); RED BLOOD COUNT 1.97 x10e6/uL (4.3-5.7); RED CELL DISTRIBUTION WIDTH 19.7 % (11.7-14.4)
[2021-12-15 05:50] LABS: PLATELET COUNT 39 x10e3/uL (140-360)
[2021-12-15 06:00] LABS: ALBUMIN 2.1 g/dL (3.5-5.0); ALBUMIN/GLOBULIN RATIO 0.9 (0.8-2.0); ANION GAP 10.4 mmol/L (8-16); CALCIUM 7.9 mg/dL (8.4-10.2); CREATININE, SERUM 0.98 mg/dL (0.72-1.25); POTASSIUM 3.4 mmol/L (3.5-5.1)
[2021-12-15] MEDS: METOPROLOL TARTRATE 25 MG TAB PO SCH ×3 (06:00→21:24)
[2021-12-15] MEDS: METOCLOPRAMIDE HCL 10 MG/2ML VIAL IV SCH ×3 (06:28→21:23)
[2021-12-15] MEDS: AMIODARONE HCL 200 MG TAB PO SCH (07:30)
[2021-12-15] MEDS: ZINC SULFATE 50 MG CAP PO SCH (07:50)
[2021-12-15] MEDS: MULTIVITAMINS/MINERALS TAB PO SCH (07:50)
[2021-12-15] MEDS: ENOXAPARIN SOD INJ 40 MG/0.4 ML SYR SC SCH (07:50)
[2021-12-15] MEDS: ASCORBIC ACID 500 MG TAB PO SCH ×2 (07:50→16:00)
[2021-12-15] MEDS ORDERED: ACETAMINOPHEN 325 MG TAB PO STA (08:06)
[2021-12-15] MEDS ORDERED: FUROSEMIDE INJ 10 MG/ML 2 ML VIAL IV ONE (08:15)
[2021-12-15] MEDS ORDERED: SODIUM CHLORIDE 0.9% 250ML 250 ML IV ONE (08:15)
[2021-12-15] MEDS: LIDOCAINE 4% PATCH TP SCH (08:20)
[2021-12-15] MEDS ORDERED: DIGOXIN INJ 0.25 MG/ML 2 ML AMP IV ONE (08:45)
[2021-12-15] MEDS ORDERED: FENTANYL 50 MCG/HR PATCH TOP SCH (09:00)
[2021-12-15] MEDS ORDERED: POTASSIUM CHLORIDE 20MEQ/100ML 200 ML IV ONE (09:00)
[2021-12-15] MEDS: SENNA-S TABLET PO SCH (09:03)
[2021-12-15 09:07] LABS: INR 1.35; PROTHROMBIN TIME 17.6 seconds (11.9-14.5)
[2021-12-15 09:38] LABS: ABG HCO3 29 mmol/L (22-26); ABG PCO2 50 mmHg (35-45); ABG PH 7.37 (7.35-7.45); ABG PO2 63 mmHg (80-105); ABG TCO2 30
[2021-12-15 11:30] LABS: ABG HCO3 29 mmol/L (22-26); ABG PCO2 49 mmHg (35-45); ABG PH 7.37 (7.35-7.45); ABG PO2 57 mmHg (80-105); ABG TCO2 30
[2021-12-15] MEDS ORDERED: FUROSEMIDE INJ 10 MG/ML 4 ML VIAL IV ONE ×2 (11:30→14:00)
[2021-12-15] MEDS ORDERED: SUCCINYLCHOLINE CHLORIDE 20 MG/ML 10ML VIAL ONE (12:35)
[2021-12-15] MEDS ORDERED: MIDAZOLAM HCL 2 MG/2 ML VIAL ONE (12:35)
[2021-12-15] MEDS ORDERED: WATER STERILE 10 ML VIAL ONE (12:35)
[2021-12-15] MEDS ORDERED: ETOMIDATE 2 MG/ML 10 ML INJ IV ONE (12:35)
[2021-12-15] MEDS ORDERED: VECURONIUM BROMIDE FOR INJ 20 MG VIAL ONE (12:35)
[2021-12-15] MEDS: PROPOFOL IV EMULSION 10MG/ML 100 ML IV SCH (13:00)
[2021-12-15] MEDS: FENTANYL 2000MCG/NS 250 250 ML IV SCH (13:02)
[2021-12-15 16:22] LABS: ABG HCO3 30 mmol/L (22-26); ABG PCO2 69 mmHg (35-45); ABG PH 7.25 (7.35-7.45); ABG PO2 218 mmHg (80-105); ABG TCO2 32
[2021-12-15 22:46] LABS: ABG HCO3 32 mmol/L (22-26); ABG PCO2 55 mmHg (35-45); ABG PH 7.37 (7.35-7.45); ABG PO2 103 mmHg (80-105); ABG TCO2 34
[2021-12-16] VITALS (17 sets, daily range): BP systolic 96–121; BP diastolic 40–60
[2021-12-16] MEDS: FENTANYL 2000MCG/NS 250 250 ML IV SCH ×2 (01:30→13:47)
[2021-12-16 05:51] LABS: BASOPHILS % 0.1 % (0.0-1.0); EOSINOPHILS % 0.5 % (0.0-6.0); HEMATOCRIT 29.1 % (38.2-49.6); HEMOGLOBIN 9.2 g/dL (14.0-18.0); LYMPHOCYTES # (AUTO) 0.5 (1.0-3.2); LYMPHOCYTES % 5.9 % (18.0-39.1); MEAN CORPUSCULAR HEMOGLOBIN 35.5 pg (28-32); MEAN CORPUSCULAR HGB CONC 31.6 g/dL (31-35); MEAN CORPUSCULAR VOLUME 112.4 fL (81-99); MONOCYTES # (AUTO) 0.3 (0.2-0.8); MONOCYTES % 3.5 % (4.4-11.3); NEUTROPHILS # (AUTO) 7.4 (2.1-6.9); NEUTROPHILS % 89.4 % (38.7-80.0); RED BLOOD COUNT 2.59 x10e6/uL (4.3-5.7); RED CELL DISTRIBUTION WIDTH 22.1 % (11.7-14.4)
[2021-12-16 05:56] LABS: PLATELET COUNT 41 x10e3/uL (140-360)
[2021-12-16] MEDS: METOCLOPRAMIDE HCL 10 MG/2ML VIAL IV SCH ×3 (05:58→21:24)
[2021-12-16] MEDS: METOPROLOL TARTRATE 25 MG TAB PO SCH ×3 (06:00→21:26)
[2021-12-16 06:22] LABS: ALBUMIN 1.9 g/dL (3.5-5.0); ALBUMIN/GLOBULIN RATIO 0.6 (0.8-2.0); ANION GAP 9.2 mmol/L (8-16); CALCIUM 8.2 mg/dL (8.4-10.2); CREATININE, SERUM 1.15 mg/dL (0.72-1.25); POTASSIUM 4.2 mmol/L (3.5-5.1)
[2021-12-16 08:39] LABS: ABG HCO3 32 mmol/L (22-26); ABG PCO2 50 mmHg (35-45); ABG PH 7.42 (7.35-7.45); ABG PO2 100 mmHg (80-105); ABG TCO2 34
[2021-12-16] MEDS: AMIODARONE HCL 200 MG TAB PO SCH (09:01)
[2021-12-16] MEDS: ENOXAPARIN SOD INJ 40 MG/0.4 ML SYR SC SCH (09:02)
[2021-12-16] MEDS: ASCORBIC ACID 500 MG TAB PO SCH ×2 (09:02→17:18)
[2021-12-16] MEDS: ZINC SULFATE 50 MG CAP PO SCH (09:02)
[2021-12-16] MEDS: LIDOCAINE 4% PATCH TP SCH (09:02)
[2021-12-16] MEDS: MULTIVITAMINS/MINERALS TAB PO SCH (09:02)
[2021-12-16] MEDS: SENNA-S TABLET PO SCH (09:02)
[2021-12-16] MEDS: PROPOFOL IV EMULSION 10MG/ML 100 ML IV SCH ×2 (09:47→11:09)
[2021-12-16 12:36] LABS: BAND NEUTROPHILS % (MANUAL) 1 %; LYMPHOCYTES % (MANUAL) 5 % (19-48); NEUTROPHILS % (MANUAL) 94 % (40-74); PLATELET ESTIMATE MODERATELY DECREASED
[2021-12-16 12:37] LABS: PLATELET MORPHOLOGY COMMENT NORMAL; RBC MORPHOLOGY COMMENT NORMAL
[2021-12-16] MEDS ORDERED: METOPROLOL TARTRATE INJ 1 MG/ML VIAL IV PRN (14:00)
[2021-12-17] VITALS (16 sets, daily range): BP systolic 97–124; BP diastolic 44–58
[2021-12-17] MEDS: FENTANYL 2000MCG/NS 250 250 ML IV SCH ×3 (00:41→22:11)
[2021-12-17] MEDS: PROPOFOL IV EMULSION 10MG/ML 100 ML IV SCH ×2 (01:43→16:13)
[2021-12-17] MEDS: METOPROLOL TARTRATE 25 MG TAB PO SCH ×3 (06:00→21:08)
[2021-12-17 06:10] LABS: BASOPHILS % 0.2 % (0.0-1.0); EOSINOPHILS % 0.2 % (0.0-6.0); HEMOGLOBIN 8.7 g/dL (14.0-18.0); LYMPHOCYTES # (AUTO) 0.7 (1.0-3.2); LYMPHOCYTES % 7.5 % (18.0-39.1); MEAN CORPUSCULAR HEMOGLOBIN 36.3 pg (28-32); MEAN CORPUSCULAR HGB CONC 33.5 g/dL (31-35); MEAN CORPUSCULAR VOLUME 108.3 fL (81-99); MONOCYTES # (AUTO) 0.2 (0.2-0.8); MONOCYTES % 2.5 % (4.4-11.3); NEUTROPHILS # (AUTO) 7.7 (2.1-6.9); NEUTROPHILS % 88.8 % (38.7-80.0); RED CELL DISTRIBUTION WIDTH 21.1 % (11.7-14.4)
[2021-12-17 06:22] LABS: PLATELET COUNT 30 x10e3/uL (140-360)
[2021-12-17 06:33] LABS: ALBUMIN 1.6 g/dL (3.5-5.0); ALBUMIN/GLOBULIN RATIO 0.5 (0.8-2.0); ANION GAP 11.2 mmol/L (8-16); CALCIUM 8.3 mg/dL (8.4-10.2); CREATININE, SERUM 1.44 mg/dL (0.72-1.25); POTASSIUM 4.2 mmol/L (3.5-5.1)
[2021-12-17] MEDS: METOCLOPRAMIDE HCL 10 MG/2ML VIAL IV SCH ×3 (06:45→21:08)
[2021-12-17] MEDS: LIDOCAINE 4% PATCH TP SCH (09:16)
[2021-12-17] MEDS: MULTIVITAMINS/MINERALS TAB PO SCH (09:16)
[2021-12-17] MEDS: SENNA-S TABLET PO SCH (09:16)
[2021-12-17] MEDS: ZINC SULFATE 50 MG CAP PO SCH (09:16)
[2021-12-17] MEDS: ASCORBIC ACID 500 MG TAB PO SCH ×2 (09:16→17:36)
[2021-12-17] MEDS: ENOXAPARIN SOD INJ 40 MG/0.4 ML SYR SC SCH (09:16)
[2021-12-17] MEDS: AMIODARONE HCL 200 MG TAB PO SCH ×3 (09:16→21:08)
[2021-12-17 09:39] LABS: BAND NEUTROPHILS % (MANUAL) 8 %; LYMPHOCYTES % (MANUAL) 8 % (19-48); METAMYELOCYTES % (MANUAL) 2 % (0-0); MONOCYTES % (MANUAL) 1 % (3.4-9.0); MYELOCYTES % (MANUAL) 1 % (0-0); NEUTROPHILS % (MANUAL) 80 % (40-74); PLATELET ESTIMATE MARKEDLY DECREASED; PLATELET MORPHOLOGY COMMENT NORMAL; RBC MORPHOLOGY COMMENT NORMAL
[2021-12-17] MEDS ORDERED: ALBUMIN 25% 25GM 100ML 0.25 GM/ML BTL IV ONE (09:45)
[2021-12-17 09:50] LABS: ABG PH 7.46 (7.35-7.45)
[2021-12-17 09:51] LABS: ABG HCO3 31 mmol/L (22-26); ABG PCO2 44 mmHg (35-45); ABG PO2 88 mmHg (80-105); ABG TCO2 32
[2021-12-17] MEDS ORDERED: ALBUMIN 25% 25GM 100ML 100 ML IV ONE (10:30)
[2021-12-17 10:42] LABS: INR 1.45; PROTHROMBIN TIME 18.6 seconds (11.9-14.5)
[2021-12-17 10:43] LABS: PARTIAL THROMBOPLASTIN TIME 46.2 seconds (23.8-35.5)
[2021-12-17] MEDS: METOPROLOL TARTRATE INJ 1 MG/ML VIAL IV PRN (11:20)
[2021-12-18] VITALS (24 sets, daily range): BP systolic 87–119; BP diastolic 39–67
[2021-12-18 00:04] LABS: BILIRUBIN,DIRECT 4.8 mg/dL (0.0-0.5)
[2021-12-18] MEDS ORDERED: SODIUM CHLORIDE 0.9% 1000ML 1,000 ML ONE (02:07)
[2021-12-18] MEDS: PROPOFOL IV EMULSION 10MG/ML 100 ML IV SCH ×2 (05:00→16:55)
[2021-12-18] MEDS: METOPROLOL TARTRATE 25 MG TAB PO SCH ×3 (06:00→21:29)
[2021-12-18] MEDS: METOCLOPRAMIDE HCL 10 MG/2ML VIAL IV SCH ×3 (06:19→21:29)
[2021-12-18 06:23] LABS: BASOPHILS % 0.2 % (0.0-1.0); EOSINOPHILS # (AUTO) 0.1 (0.0-0.4); EOSINOPHILS % 0.9 % (0.0-6.0); HEMATOCRIT 23.7 % (38.2-49.6); HEMOGLOBIN 7.8 g/dL (14.0-18.0); LYMPHOCYTES # (AUTO) 0.4 (1.0-3.2); LYMPHOCYTES % 7.9 % (18.0-39.1); MEAN CORPUSCULAR HEMOGLOBIN 35.9 pg (28-32); MEAN CORPUSCULAR HGB CONC 32.9 g/dL (31-35); MEAN CORPUSCULAR VOLUME 109.2 fL (81-99); MONOCYTES # (AUTO) 0.1 (0.2-0.8); NEUTROPHILS # (AUTO) 4.8 (2.1-6.9); NEUTROPHILS % 88.4 % (38.7-80.0); RED BLOOD COUNT 2.17 x10e6/uL (4.3-5.7); RED CELL DISTRIBUTION WIDTH 20.8 % (11.7-14.4)
[2021-12-18 06:36] LABS: PLATELET COUNT 20 x10e3/uL (140-360)
[2021-12-18 07:01] LABS: ALBUMIN 1.5 g/dL (3.5-5.0); ALBUMIN/GLOBULIN RATIO 0.5 (0.8-2.0); ANION GAP 10.7 mmol/L (8-16); CREATININE, SERUM 1.03 mg/dL (0.72-1.25); POTASSIUM 3.7 mmol/L (3.5-5.1)
[2021-12-18] MEDS: LIDOCAINE 4% PATCH TP SCH (08:38)
[2021-12-18] MEDS: ASCORBIC ACID 500 MG TAB PO SCH ×2 (08:38→16:55)
[2021-12-18] MEDS: MULTIVITAMINS/MINERALS TAB PO SCH (08:38)
[2021-12-18] MEDS: AMIODARONE HCL 200 MG TAB PO SCH ×2 (08:38→21:29)
[2021-12-18] MEDS: ZINC SULFATE 50 MG CAP PO SCH (08:38)
[2021-12-18] MEDS: SENNA-S TABLET PO SCH (08:38)
[2021-12-18] MEDS: ENOXAPARIN 30 MG/0.3 ML SYR SC SCH (08:38)
[2021-12-18 09:14] LABS: ABG PCO2 47 mmHg (35-45); ABG PH 7.43 (7.35-7.45); ABG PO2 112 mmHg (80-105)
[2021-12-18 09:15] LABS: ABG HCO3 31 mmol/L (22-26); ABG TCO2 32
[2021-12-18] MEDS ORDERED: BISACODYL 10 MG SUPP PR NR (11:00)
[2021-12-18] MEDS ORDERED: MAGNESIUM HYDROXIDE 30 ML UDC PO NR (11:00)
[2021-12-18] MEDS: METOPROLOL TARTRATE INJ 1 MG/ML VIAL IV PRN (12:54)
[2021-12-18] MEDS ORDERED: SODIUM CHLORIDE 0.9% 250ML 250 ML ONE (16:48)
[2021-12-18] MEDS: FENTANYL 2000MCG/NS 250 250 ML IV SCH (17:53)
[2021-12-19] VITALS (24 sets, daily range): BP systolic 85–129; BP diastolic 39–61
[2021-12-19] MEDS: FENTANYL 2000MCG/NS 250 250 ML IV SCH ×4 (02:55→23:54)
[2021-12-19] MEDS: METOPROLOL TARTRATE 25 MG TAB PO SCH ×4 (06:00→22:00)
[2021-12-19 06:09] LABS: BASOPHILS % 0.2 % (0.0-1.0); EOSINOPHILS % 0.7 % (0.0-6.0); HEMATOCRIT 22.8 % (38.2-49.6); HEMOGLOBIN 7.5 g/dL (14.0-18.0); LYMPHOCYTES # (AUTO) 0.5 (1.0-3.2); LYMPHOCYTES % 9.4 % (18.0-39.1); MEAN CORPUSCULAR HEMOGLOBIN 35.7 pg (28-32); MEAN CORPUSCULAR HGB CONC 32.9 g/dL (31-35); MEAN CORPUSCULAR VOLUME 108.6 fL (81-99); MONOCYTES # (AUTO) 0.2 (0.2-0.8); MONOCYTES % 2.8 % (4.4-11.3); NEUTROPHILS # (AUTO) 4.6 (2.1-6.9); NEUTROPHILS % 86.2 % (38.7-80.0); RED CELL DISTRIBUTION WIDTH 20.7 % (11.7-14.4)
[2021-12-19] MEDS: METOCLOPRAMIDE HCL 10 MG/2ML VIAL IV SCH ×3 (06:10→21:33)
[2021-12-19 06:27] LABS: ALBUMIN 1.3 g/dL (3.5-5.0); ALBUMIN/GLOBULIN RATIO 0.4 (0.8-2.0); ANION GAP 11.7 mmol/L (8-16); CALCIUM 7.9 mg/dL (8.4-10.2); CREATININE, SERUM 1.19 mg/dL (0.72-1.25); POTASSIUM 3.7 mmol/L (3.5-5.1)
[2021-12-19] MEDS: PROPOFOL IV EMULSION 10MG/ML 100 ML IV SCH ×2 (06:45→17:24)
[2021-12-19 06:48] LABS: PLATELET COUNT 26 x10e3/uL (140-360)
[2021-12-19] MEDS: ENOXAPARIN 30 MG/0.3 ML SYR SC SCH (08:22)
[2021-12-19] MEDS ORDERED: FUROSEMIDE INJ 10 MG/ML 4 ML VIAL IV ONE (09:00)
[2021-12-19 09:03] LABS: ABG HCO3 28 mmol/L (22-26); ABG PCO2 45 mmHg (35-45); ABG PH 7.41 (7.35-7.45); ABG PO2 74 mmHg (80-105); ABG TCO2 30
[2021-12-19] MEDS: AMIODARONE HCL 200 MG TAB PO SCH ×2 (09:13→21:33)
[2021-12-19] MEDS: ASCORBIC ACID 500 MG TAB PO SCH ×2 (09:13→16:30)
[2021-12-19] MEDS: SENNA-S TABLET PO SCH (09:13)
[2021-12-19] MEDS: MULTIVITAMINS/MINERALS TAB PO SCH (09:13)
[2021-12-19] MEDS: LIDOCAINE 4% PATCH TP SCH (09:13)
[2021-12-19] MEDS: ZINC SULFATE 50 MG CAP PO SCH (09:13)
[2021-12-19] MEDS: IRON SUCROSE 100 MG in SODIUM CHLORIDE 0.9% 100 ML 100 ML IV SCH (09:47)
[2021-12-19] MEDS: MIDODRINE 2.5 MG TAB PO SCH ×3 (09:48→16:30)
[2021-12-19] MEDS ORDERED: MIDODRINE 2.5 MG TAB PO SCH (12:00)
[2021-12-19] MEDS: NOREPINEPHRINE 8 MG/D5W 250 ML 250 ML IV SCH (13:16)
[2021-12-20] VITALS (16 sets, daily range): BP systolic 99–125; BP diastolic 40–55
[2021-12-20] MEDS: NOREPINEPHRINE 8 MG/D5W 250 ML 250 ML IV SCH ×3 (02:51→22:55)
[2021-12-20] MEDS: PROPOFOL IV EMULSION 10MG/ML 100 ML IV SCH ×2 (05:07→14:25)
[2021-12-20] MEDS: METOCLOPRAMIDE HCL 10 MG/2ML VIAL IV SCH ×3 (05:12→21:32)
[2021-12-20] MEDS: METOPROLOL TARTRATE 25 MG TAB PO SCH ×3 (05:13→21:34)
[2021-12-20] MEDS: FENTANYL 2000MCG/NS 250 250 ML IV SCH ×3 (06:29→21:47)
[2021-12-20 06:57] LABS: BASOPHILS % 0.2 % (0.0-1.0); EOSINOPHILS # (AUTO) 0.1 (0.0-0.4); EOSINOPHILS % 1.2 % (0.0-6.0); HEMATOCRIT 24.1 % (38.2-49.6); HEMOGLOBIN 7.9 g/dL (14.0-18.0); LYMPHOCYTES # (AUTO) 0.6 (1.0-3.2); LYMPHOCYTES % 11.6 % (18.0-39.1); MEAN CORPUSCULAR HEMOGLOBIN 35.4 pg (28-32); MEAN CORPUSCULAR HGB CONC 32.8 g/dL (31-35); MEAN CORPUSCULAR VOLUME 108.1 fL (81-99); MONOCYTES # (AUTO) 0.2 (0.2-0.8); MONOCYTES % 3.3 % (4.4-11.3); NEUTROPHILS # (AUTO) 4.3 (2.1-6.9); NEUTROPHILS % 82.7 % (38.7-80.0); RED BLOOD COUNT 2.23 x10e6/uL (4.3-5.7); RED CELL DISTRIBUTION WIDTH 20.8 % (11.7-14.4)
[2021-12-20 07:20] LABS: PLATELET COUNT 12 x10e3/uL (140-360)
[2021-12-20 07:24] LABS: ALBUMIN 1.2 g/dL (3.5-5.0); ALBUMIN/GLOBULIN RATIO 0.4 (0.8-2.0); ANION GAP 11.9 mmol/L (8-16); CALCIUM 7.9 mg/dL (8.4-10.2); CREATININE, SERUM 1.35 mg/dL (0.72-1.25); POTASSIUM 3.9 mmol/L (3.5-5.1)
[2021-12-20 07:59] LABS: BILIRUBIN,DIRECT 7.3 mg/dL (0.0-0.5)
[2021-12-20] MEDS ORDERED: FUROSEMIDE INJ 10 MG/ML 4 ML VIAL IV ONE (08:45)
[2021-12-20] MEDS: LIDOCAINE 4% PATCH TP SCH (09:24)
[2021-12-20] MEDS: ZINC SULFATE 50 MG CAP PO SCH (09:24)
[2021-12-20] MEDS: SENNA-S TABLET PO SCH (09:24)
[2021-12-20] MEDS: ASCORBIC ACID 500 MG TAB PO SCH ×2 (09:24→16:15)
[2021-12-20] MEDS: AMIODARONE HCL 200 MG TAB PO SCH ×2 (09:24→21:32)
[2021-12-20] MEDS: MIDODRINE HCL 5 MG TABLET PO SCH ×3 (09:24→16:15)
[2021-12-20] MEDS: MULTIVITAMINS/MINERALS TAB PO SCH (09:24)
[2021-12-20] MEDS: IRON SUCROSE 100 MG in SODIUM CHLORIDE 0.9% 100 ML 100 ML IV SCH (10:45)
[2021-12-20 11:22] LABS: ABG HCO3 29 mmol/L (22-26); ABG PCO2 50 mmHg (35-45); ABG PH 7.37 (7.35-7.45); ABG PO2 101 mmHg (80-105)
[2021-12-20 11:23] LABS: ABG TCO2 30
[2021-12-20] MEDS ORDERED: MIDODRINE HCL 5 MG TABLET PO SCH (12:00)
[2021-12-20 18:11] LABS: EOSINOPHILS % (MANUAL) 2 % (0-7); HYPOCHROMASIA SLIGHT; LYMPHOCYTES % (MANUAL) 5 % (19-48); METAMYELOCYTES % (MANUAL) 1 % (0-0); MONOCYTES % (MANUAL) 9 % (3.4-9.0); NEUTROPHILS % (MANUAL) 81 % (40-74); RBC MORPHOLOGY COMMENT ABNORMAL
[2021-12-20 18:12] LABS: PLATELET ESTIMATE MARKEDLY DECREASED; PLATELET MORPHOLOGY COMMENT NORMAL
[2021-12-21] VITALS (25 sets, daily range): BP systolic 82–133; BP diastolic 33–59
[2021-12-21] MEDS: PROPOFOL IV EMULSION 10MG/ML 100 ML IV SCH (02:34)
[2021-12-21] MEDS: FENTANYL 2000MCG/NS 250 250 ML IV SCH ×3 (05:23→18:02)
[2021-12-21] MEDS: METOCLOPRAMIDE HCL 10 MG/2ML VIAL IV SCH ×3 (05:23→21:19)
[2021-12-21] MEDS: METOPROLOL TARTRATE 25 MG TAB PO SCH ×3 (05:24→21:19)
[2021-12-21 05:52] LABS: BASOPHILS % 0.2 % (0.0-1.0); EOSINOPHILS # (AUTO) 0.1 (0.0-0.4); EOSINOPHILS % 1.5 % (0.0-6.0); HEMATOCRIT 22.7 % (38.2-49.6); HEMOGLOBIN 7.6 g/dL (14.0-18.0); LYMPHOCYTES # (AUTO) 0.5 (1.0-3.2); LYMPHOCYTES % 12.8 % (18.0-39.1); MEAN CORPUSCULAR HEMOGLOBIN 35.2 pg (28-32); MEAN CORPUSCULAR HGB CONC 33.5 g/dL (31-35); MEAN CORPUSCULAR VOLUME 105.1 fL (81-99); MONOCYTES # (AUTO) 0.1 (0.2-0.8); MONOCYTES % 3.4 % (4.4-11.3); NEUTROPHILS # (AUTO) 3.3 (2.1-6.9); NEUTROPHILS % 80.6 % (38.7-80.0); RED BLOOD COUNT 2.16 x10e6/uL (4.3-5.7); RED CELL DISTRIBUTION WIDTH 20.9 % (11.7-14.4)
[2021-12-21 05:57] LABS: PLATELET COUNT 21 x10e3/uL (140-360)
[2021-12-21 06:07] LABS: ALBUMIN 1.1 g/dL (3.5-5.0); ALBUMIN/GLOBULIN RATIO 0.3 (0.8-2.0); ANION GAP 12.4 mmol/L (8-16); CALCIUM 7.9 mg/dL (8.4-10.2); CREATININE, SERUM 1.45 mg/dL (0.72-1.25); POTASSIUM 3.4 mmol/L (3.5-5.1)
[2021-12-21 07:06] LABS: ANISOCYTOSIS MODERATE; EOSINOPHILS % (MANUAL) 2 % (0-7); LYMPHOCYTES % (MANUAL) 11 % (19-48); MONOCYTES % (MANUAL) 1 % (3.4-9.0); NEUTROPHILS % (MANUAL) 86 % (40-74); NUCLEATED RED BLOOD CELLS 1
[2021-12-21 07:07] LABS: PLATELET ESTIMATE MARKEDLY DECREASED; PLATELET MORPHOLOGY COMMENT NORMAL; POIKILOCYTOSIS SLIGHT; RBC MORPHOLOGY COMMENT ABNORMAL
[2021-12-21] MEDS: NOREPINEPHRINE 8 MG/D5W 250 ML 250 ML IV SCH ×3 (07:45→22:47)
[2021-12-21] MEDS ORDERED: POTASSIUM CHLORIDE 20MEQ/100ML 100 ML IV ONE (08:45)
[2021-12-21 09:00] LABS: ABG HCO3 30 mmol/L (22-26); ABG PCO2 44 mmHg (35-45); ABG PH 7.44 (7.35-7.45); ABG PO2 62 mmHg (80-105)
[2021-12-21 09:01] LABS: ABG TCO2 31
[2021-12-21] MEDS: MULTIVITAMINS/MINERALS TAB PO SCH (09:15)
[2021-12-21] MEDS: MIDODRINE HCL 5 MG TABLET PO SCH ×3 (09:15→16:35)
[2021-12-21] MEDS: LIDOCAINE 4% PATCH TP SCH (09:15)
[2021-12-21] MEDS: SENNA-S TABLET PO SCH (09:15)
[2021-12-21] MEDS: ASCORBIC ACID 500 MG TAB PO SCH ×2 (09:15→16:35)
[2021-12-21] MEDS: ZINC SULFATE 50 MG CAP PO SCH (09:15)
[2021-12-21] MEDS: IRON SUCROSE 100 MG in SODIUM CHLORIDE 0.9% 100 ML 100 ML IV SCH (09:15)
[2021-12-21] MEDS: AMIODARONE HCL 200 MG TAB PO SCH ×2 (09:15→20:38)
[2021-12-21] MEDS ORDERED: VECURONIUM BROMIDE FOR INJ 20 MG VIAL IV STA (11:38)
[2021-12-21] MEDS: ROCURONIUM 1250MG/NS 250 250 ML IV PRN (12:28)
[2021-12-21] MEDS: MIDAZOLAM HCL 5MG/ML 10ML VIAL 100 ML IV PRN ×2 (12:29→21:38)
[2021-12-21] MEDS ORDERED: POTASSIUM CHLORIDE 10MEQ/100ML 200 ML IV ONE (12:30)
[2021-12-21 16:38] LABS: ABG PH 7.28 (7.35-7.45)
[2021-12-21 16:39] LABS: ABG HCO3 30 mmol/L (22-26); ABG PCO2 64 mmHg (35-45); ABG PO2 93 mmHg (80-105); ABG TCO2 32
[2021-12-22] VITALS (26 sets, daily range): BP systolic 83–136; BP diastolic 40–56
[2021-12-22] MEDS: NOREPINEPHRINE 8 MG/D5W 250 ML 250 ML IV SCH ×6 (01:55→22:01)
[2021-12-22] MEDS: FENTANYL 2000MCG/NS 250 250 ML IV SCH ×4 (02:00→21:58)
[2021-12-22] MEDS: ACETAMINOPHEN 325 MG TAB PO PRN (03:35)
[2021-12-22 05:11] LABS: BASOPHILS % 0.1 % (0.0-1.0); EOSINOPHILS % 0.4 % (0.0-6.0); HEMATOCRIT 21.7 % (38.2-49.6); LYMPHOCYTES # (AUTO) 0.8 (1.0-3.2); LYMPHOCYTES % 11.2 % (18.0-39.1); MEAN CORPUSCULAR HGB CONC 32.3 g/dL (31-35); MONOCYTES # (AUTO) 0.2 (0.2-0.8); MONOCYTES % 3.3 % (4.4-11.3); NEUTROPHILS # (AUTO) 5.8 (2.1-6.9); NEUTROPHILS % 83.7 % (38.7-80.0); RED CELL DISTRIBUTION WIDTH 21.4 % (11.7-14.4)
[2021-12-22 05:37] LABS: ALBUMIN 0.9 g/dL (3.5-5.0); ALBUMIN/GLOBULIN RATIO 0.2 (0.8-2.0); ANION GAP 15.7 mmol/L (8-16); CALCIUM 7.7 mg/dL (8.4-10.2); CREATININE, SERUM 2.66 mg/dL (0.72-1.25); POTASSIUM 4.7 mmol/L (3.5-5.1)
[2021-12-22 05:39] LABS: MEAN CORPUSCULAR VOLUME 108.5 fL (81-99); PLATELET COUNT 16 x10e3/uL (140-360)
[2021-12-22] MEDS: METOPROLOL TARTRATE 25 MG TAB PO SCH ×3 (06:00→21:17)
[2021-12-22] MEDS: METOCLOPRAMIDE HCL 10 MG/2ML VIAL IV SCH ×3 (06:07→21:17)
[2021-12-22] MEDS ORDERED: VASOPRESSIN 60 UNIT in DEXTROSE 5% 50ML 57 ML IV PRN (06:30)
[2021-12-22] MEDS ORDERED: VASOPRESSIN INJ 20 UNIT/ML VIAL ONE (06:34)
[2021-12-22] MEDS ORDERED: DEXTROSE 5% 100ML 100 ML IV ONE (06:35)
[2021-12-22 07:52] LABS: BAND NEUTROPHILS % (MANUAL) 1 %; BLAST CELLS % MANUAL 1; EOSINOPHILS % (MANUAL) 1 % (0-7); LYMPHOCYTES % (MANUAL) 15 % (19-48); METAMYELOCYTES % (MANUAL) 1 % (0-0); NEUTROPHILS % (MANUAL) 78 % (40-74); NUCLEATED RED BLOOD CELLS 1
[2021-12-22 07:53] LABS: MICROCYTOSIS SLIG; PLATELET ESTIMATE MARKEDLY DECREASED; PLATELET MORPHOLOGY COMMENT NORMAL; POIKILOCYTOSIS SLIGHT; RBC MORPHOLOGY COMMENT ABNORMAL
[2021-12-22 07:54] LABS: ANISOCYTOSIS SLIG; TARGET CELLS FEW
[2021-12-22] MEDS: MIDAZOLAM HCL 5MG/ML 10ML VIAL 100 ML IV PRN ×2 (08:25→17:55)
[2021-12-22 08:32] LABS: ABG HCO3 27 mmol/L (22-26); ABG PCO2 58 mmHg (35-45); ABG PH 7.27 (7.35-7.45); ABG PO2 162 mmHg (80-105); ABG TCO2 28
[2021-12-22] MEDS: MIDODRINE HCL 5 MG TABLET PO SCH ×3 (10:09→16:16)
[2021-12-22] MEDS: ZINC SULFATE 50 MG CAP PO SCH (10:10)
[2021-12-22] MEDS: IRON SUCROSE 100 MG in SODIUM CHLORIDE 0.9% 100 ML 100 ML IV SCH (10:10)
[2021-12-22] MEDS: MULTIVITAMINS/MINERALS TAB PO SCH (10:10)
[2021-12-22] MEDS: LIDOCAINE 4% PATCH TP SCH (10:10)
[2021-12-22] MEDS: SENNA-S TABLET PO SCH (10:10)
[2021-12-22] MEDS: ASCORBIC ACID 500 MG TAB PO SCH ×2 (10:10→16:16)
[2021-12-22] MEDS: AMIODARONE HCL 200 MG TAB PO SCH ×2 (10:10→21:17)
[2021-12-22] MEDS ORDERED: SODIUM CHLORIDE 0.9% 250ML 250 ML ONE (12:55)
[2021-12-22] MEDS ORDERED: FUROSEMIDE INJ 10 MG/ML 4 ML VIAL IV ONE (19:00)
[2021-12-23] VITALS (22 sets, daily range): BP systolic 90–133; BP diastolic 43–114
[2021-12-23] MEDS: ROCURONIUM 1250MG/NS 250 250 ML IV PRN (00:16)
[2021-12-23] MEDS: MIDAZOLAM HCL 5MG/ML 10ML VIAL 100 ML IV PRN ×6 (00:19→23:50)
[2021-12-23 05:08] LABS: BASOPHILS % 0.1 % (0.0-1.0); EOSINOPHILS % 0.5 % (0.0-6.0); HEMATOCRIT 21.9 % (38.2-49.6); HEMOGLOBIN 7.2 g/dL (14.0-18.0); LYMPHOCYTES # (AUTO) 0.6 (1.0-3.2); LYMPHOCYTES % 8.4 % (18.0-39.1); MEAN CORPUSCULAR HGB CONC 32.9 g/dL (31-35); MEAN CORPUSCULAR VOLUME 100.5 fL (81-99); MONOCYTES # (AUTO) 0.2 (0.2-0.8); MONOCYTES % 2.3 % (4.4-11.3); NEUTROPHILS # (AUTO) 6.5 (2.1-6.9); NEUTROPHILS % 87.1 % (38.7-80.0); RED BLOOD COUNT 2.18 x10e6/uL (4.3-5.7)
[2021-12-23] MEDS: METOCLOPRAMIDE HCL 10 MG/2ML VIAL IV SCH ×3 (05:19→21:51)
[2021-12-23] MEDS: METOPROLOL TARTRATE 25 MG TAB PO SCH ×3 (05:19→21:51)
[2021-12-23] MEDS: ACETAMINOPHEN 325 MG TAB PO PRN (05:20)
[2021-12-23 05:39] LABS: PLATELET COUNT 28 x10e3/uL (140-360)
[2021-12-23 06:03] LABS: ALBUMIN 0.9 g/dL (3.5-5.0); ALBUMIN/GLOBULIN RATIO 0.3 (0.8-2.0); ANION GAP 17.6 mmol/L (8-16); CALCIUM 7.1 mg/dL (8.4-10.2); CREATININE, SERUM 3.44 mg/dL (0.72-1.25); POTASSIUM 4.6 mmol/L (3.5-5.1)
[2021-12-23] MEDS: VASOPRESSIN 60 UNIT in DEXTROSE 5% 100ML 57 ML IV PRN (06:09)
[2021-12-23] MEDS: FENTANYL 2000MCG/NS 250 250 ML IV SCH ×2 (06:11→13:03)
[2021-12-23] MEDS: NOREPINEPHRINE 8 MG/D5W 250 ML 250 ML IV SCH ×2 (07:54→13:04)
[2021-12-23] MEDS: SENNA-S TABLET PO SCH (08:45)
[2021-12-23] MEDS: MULTIVITAMINS/MINERALS TAB PO SCH (08:45)
[2021-12-23] MEDS: ASCORBIC ACID 500 MG TAB PO SCH ×2 (08:45→17:11)
[2021-12-23] MEDS: LIDOCAINE 4% PATCH TP SCH (08:45)
[2021-12-23] MEDS: IRON SUCROSE 100 MG in SODIUM CHLORIDE 0.9% 100 ML 100 ML IV SCH (08:45)
[2021-12-23] MEDS: AMIODARONE HCL 200 MG TAB PO SCH ×2 (08:45→21:50)
[2021-12-23] MEDS: ZINC SULFATE 50 MG CAP PO SCH (08:45)
[2021-12-23] MEDS: MIDODRINE HCL 5 MG TABLET PO SCH ×3 (08:48→17:11)
[2021-12-23 09:04] LABS: EOSINOPHILS % (MANUAL) 3 % (0-7); LYMPHOCYTES % (MANUAL) 2 % (19-48); MONOCYTES % (MANUAL) 1 % (3.4-9.0); NEUTROPHILS % (MANUAL) 94 % (40-74); PLATELET ESTIMATE MARKEDLY DECREASED; PLATELET MORPHOLOGY COMMENT NORMAL; RBC MORPHOLOGY COMMENT NORMAL
[2021-12-23 10:17] LABS: ABG HCO3 23 mmol/L (22-26); ABG PCO2 57 mmHg (35-45); ABG PH 7.22 (7.35-7.45); ABG PO2 77 mmHg (80-105); ABG TCO2 25
[2021-12-23] MEDS ORDERED: SODIUM CHLORIDE 0.9% 250ML 250 ML ONE (11:40)
[2021-12-23 13:25] LABS: ABG PCO2 50 mmHg (35-45); ABG PH 7.26 (7.35-7.45); ABG PO2 74 mmHg (80-105)
[2021-12-23 13:26] LABS: ABG HCO3 22 mmol/L (22-26); ABG TCO2 24
[2021-12-23] MEDS ORDERED: FUROSEMIDE INJ 10 MG/ML 4 ML VIAL IV ONE (13:30)
[2021-12-23] MEDS ORDERED: HEPARIN SOD (PORCINE) 1000 UNIT/ML SDV ONE (19:31)
[2021-12-24] VITALS (14 sets, daily range): BP systolic 64–109; BP diastolic 31–66
[2021-12-24] MEDS: NOREPINEPHRINE 8 MG/D5W 250 ML 250 ML IV SCH ×3 (01:01→17:51)
[2021-12-24] MEDS: FENTANYL 2000MCG/NS 250 250 ML IV SCH ×3 (04:51→20:37)
[2021-12-24] MEDS: MIDAZOLAM HCL 5MG/ML 10ML VIAL 100 ML IV PRN ×4 (04:51→20:30)
[2021-12-24] MEDS: VASOPRESSIN 60 UNIT in DEXTROSE 5% 100ML 57 ML IV PRN (04:52)
[2021-12-24] MEDS: METOPROLOL TARTRATE 25 MG TAB PO SCH ×3 (06:00→20:34)
[2021-12-24 06:20] LABS: BASOPHILS # (AUTO) 0.1 (0.0-0.1); BASOPHILS % 0.5 % (0.0-1.0); EOSINOPHILS % 0.3 % (0.0-6.0); LYMPHOCYTES # (AUTO) 0.6 (1.0-3.2); LYMPHOCYTES % 5.1 % (18.0-39.1); MEAN CORPUSCULAR HEMOGLOBIN 33.1 pg (28-32); MEAN CORPUSCULAR HGB CONC 33.5 g/dL (31-35); MEAN CORPUSCULAR VOLUME 98.9 fL (81-99); MONOCYTES # (AUTO) 0.2 (0.2-0.8); MONOCYTES % 1.7 % (4.4-11.3); NEUTROPHILS # (AUTO) 10.9 (2.1-6.9); NEUTROPHILS % 90.7 % (38.7-80.0); RED BLOOD COUNT 1.75 x10e6/uL (4.3-5.7); RED CELL DISTRIBUTION WIDTH 21.9 % (11.7-14.4)
[2021-12-24] MEDS: METOCLOPRAMIDE HCL 10 MG/2ML VIAL IV SCH (06:27)
[2021-12-24 06:42] LABS: ALBUMIN 1.1 g/dL (3.5-5.0); ALBUMIN/GLOBULIN RATIO 0.3 (0.8-2.0); ANION GAP 19.2 mmol/L (8-16); CALCIUM 7.3 mg/dL (8.4-10.2); CREATININE, SERUM 3.48 mg/dL (0.72-1.25); POTASSIUM 5.2 mmol/L (3.5-5.1)
[2021-12-24 06:50] LABS: HEMATOCRIT 17.3 % (38.2-49.6); HEMOGLOBIN 5.8 g/dL (14.0-18.0); PLATELET COUNT 38 x10e3/uL (140-360)
[2021-12-24] MEDS ORDERED: ACETAMINOPHEN 325 MG TAB PO STA (07:03)
[2021-12-24] MEDS ORDERED: SODIUM CHLORIDE 0.9% 250ML 250 ML IV ONE (07:15)
[2021-12-24] MEDS: MIDODRINE HCL 5 MG TABLET PO SCH ×3 (08:44→16:08)
[2021-12-24] MEDS: IRON SUCROSE 100 MG in SODIUM CHLORIDE 0.9% 100 ML 100 ML IV SCH (08:44)
[2021-12-24] MEDS: MULTIVITAMINS/MINERALS TAB PO SCH ×2 (08:45→09:00)
[2021-12-24] MEDS: SENNA-S TABLET PO SCH ×2 (08:45→09:00)
[2021-12-24] MEDS: ASCORBIC ACID 500 MG TAB PO SCH ×3 (08:45→16:08)
[2021-12-24] MEDS: AMIODARONE HCL 200 MG TAB PO SCH ×3 (08:45→20:34)
[2021-12-24] MEDS: ZINC SULFATE 50 MG CAP PO SCH ×2 (08:45→09:00)
[2021-12-24] MEDS: LIDOCAINE 4% PATCH TP SCH (08:45)
[2021-12-24] MEDS: ROCURONIUM 1250MG/NS 250 250 ML IV PRN (08:46)
[2021-12-24 08:51] LABS: ABG PH 7.18 (7.35-7.45)
[2021-12-24 08:52] LABS: ABG HCO3 22 mmol/L (22-26); ABG PCO2 60 mmHg (35-45); ABG PO2 91 mmHg (80-105); ABG TCO2 24
[2021-12-24] MEDS ORDERED: SODIUM CHLORIDE 0.9% 250ML 250 ML ONE (10:37)
[2021-12-24 11:34] LABS: BAND NEUTROPHILS % (MANUAL) 2 %; LYMPHOCYTES % (MANUAL) 4 % (19-48); METAMYELOCYTES % (MANUAL) 2 % (0-0); MONOCYTES % (MANUAL) 2 % (3.4-9.0); MYELOCYTES % (MANUAL) 1 % (0-0); NEUTROPHILS % (MANUAL) 89 % (40-74); PLATELET ESTIMATE MARKEDLY DECREASED
[2021-12-24 11:35] LABS: ANISOCYTOSIS MODERATE; HYPOCHROMASIA SLIGHT; PLATELET MORPHOLOGY COMMENT NORMAL; RBC MORPHOLOGY COMMENT ABNORMAL; TOXIC GRANULATION SLIGHT
[2021-12-24] MEDS: PHENYLEPHRINE 10MG/ML VIAL 40 MG in DEXTROSE 5% 250ML 246 ML IV SCH ×2 (14:46→21:23)
[2021-12-24] MEDS ORDERED: SODIUM BICARBONATE 8.4% INJ 50 ML SYR IV ONE (18:00)
[2021-12-24] MEDS ORDERED: METOCLOPRAMIDE HCL 10 MG/2ML VIAL IV SCH (18:00)
[2021-12-25] MEDS ORDERED: EPINEPHRINE HCL SYRINGE ONE (12:10)
[2021-12-25] MEDS ORDERED: ATROPINE SULFATE 0.1 MG/ML 10ML SYR ONE (12:10)
== END 2021-12-25 02:00 | disposition expired | DRG 207 ==
LOC: ER 21:18 → ERHOLD 22:33 → IMCU 12-06 08:30 → ICU 12-09 12:39
PROVIDERS: ADMIT Internal Medicine; ATTEND Internal Medicine
PROC: 5A0935A Assistance with Respiratory Ventilation, Less than 24 Consecutive Hours, High Flow/Velocity Cannula (ICD-10-PCS; 2021-12-06)
PROC: 3E0333Z Introduction of Anti-inflammatory into Peripheral Vein, Percutaneous Approach (ICD-10-PCS; 2021-12-06)
PROC: XW033E5 Introduction of Remdesivir Anti-infective into Peripheral Vein, Percutaneous Approach, New Technology Group 5 (ICD-10-PCS; 2021-12-07)
PROC: 5A2204Z Restoration of Cardiac Rhythm, Single (ICD-10-PCS; 2021-12-09)
PROC: 5A12012 Performance of Cardiac Output, Single, Manual (ICD-10-PCS; 2021-12-09)
PROC: 02HV33Z Insertion of Infusion Device into Superior Vena Cava, Percutaneous Approach (ICD-10-PCS; 2021-12-09)
PROC: 30243N1 Transfusion of Nonautologous Red Blood Cells into Central Vein, Percutaneous Approach (ICD-10-PCS; 2021-12-10)
PROC: 5A1955Z Respiratory Ventilation, Greater than 96 Consecutive Hours (ICD-10-PCS; principal; 2021-12-13)
PROC: 0BH18EZ Insertion of Endotracheal Airway into Trachea, Via Natural or Artificial Opening Endoscopic (ICD-10-PCS; 2021-12-13)
PROC: 03HC33Z Insertion of Infusion Device into Left Radial Artery, Percutaneous Approach (ICD-10-PCS; 2021-12-13)
PROC: 3E043XZ Introduction of Vasopressor into Central Vein, Percutaneous Approach (ICD-10-PCS; 2021-12-13)
PROC: 30243R1 Transfusion of Nonautologous Platelets into Central Vein, Percutaneous Approach (ICD-10-PCS; 2021-12-20)
PROC: 02HV33Z Insertion of Infusion Device into Superior Vena Cava, Percutaneous Approach (ICD-10-PCS; 2021-12-23)
PROC: B548ZZA Ultrasonography of Superior Vena Cava, Guidance (ICD-10-PCS; 2021-12-23)
PROC: 5A1D70Z Performance of Urinary Filtration, Intermittent, Less than 6 Hours Per Day (ICD-10-PCS; 2021-12-23)
PROC: 30243L1 Transfusion of Nonautologous Fresh Plasma into Central Vein, Percutaneous Approach (ICD-10-PCS; 2021-12-23)
PROC: 30243K1 Transfusion of Nonautologous Frozen Plasma into Central Vein, Percutaneous Approach (ICD-10-PCS; 2021-12-23)
PROC: 5A12012 Performance of Cardiac Output, Single, Manual (ICD-10-PCS; 2021-12-24)
DX: U07.1 COVID-19 (principal); J12.82 Pneumonia due to coronavirus disease 2019; J96.01 Acute respiratory failure with hypoxia; I50.23 Acute on chronic systolic (congestive) heart failure; G92.8 Other toxic encephalopathy; D65 Disseminated intravascular coagulation [defibrination syndrome]; A41.89 Other specified sepsis; R65.21 Severe sepsis with septic shock; I48.19 Other persistent atrial fibrillation; I47.2 Ventricular tachycardia; M96.89 Other intraoperative and postprocedural complications and disorders of the musculoskeletal system; E87.1 Hypo-osmolality and hyponatremia; I25.10 Atherosclerotic heart disease of native coronary artery without angina pectoris; D46.9 Myelodysplastic syndrome, unspecified; F17.210 Nicotine dependence, cigarettes, uncomplicated; Z88.0 Allergy status to penicillin; Z91.81 History of falling; Z95.5 Presence of coronary angioplasty implant and graft; E88.09 Other disorders of plasma-protein metabolism, not elsewhere classified; R73.9 Hyperglycemia, unspecified; D75.89 Other specified diseases of blood and blood-forming organs; F10.21 Alcohol dependence, in remission; I11.0 Hypertensive heart disease with heart failure; Y84.8 Other medical procedures as the cause of abnormal reaction of the patient, or of later complication, without mention of misadventure at the time of the procedure; K72.90 Hepatic failure, unspecified without coma; Z66 Do not resuscitate
CPT/HCPCS: 31500; 36415; 36569; 36600; 70450; 71045; 71120; 71250; 74018; 76700; 80053; 80061; 82248; 82390; 82550; 82553; 82607; 82728; 82746; 82784; 82805; 83010; 83036; 83540; 83615; 83735; 83880; 84100; 84155; 84436; 84443; 84466; 84479; 84484; 85014; 85018; 85025; 85045; 85610; 85730; 86039; 86141; 86255; 86850; 86900; 86920; 88184; 92950; 93005; 93306; 94003; 94640; 94799; 96361; 99251; 99284; J0171; J0248; J0330; J0456; J0696; J1100; J1160; J1644; J1650; J1756; J1885; J1940; J2250; J2370; J2765; J3411; J3475; J3480; J7030; J7050; J7121; P9016; P9017; P9034; P9047; U0002